=== PATIENT | female | born 1955 ===

== ENCOUNTER 2018-11-07 08:10 | Outpatient (CLI) | payer OTHER | END 2018-11-07 08:18 | disposition home or self-care (01) | LOC: SONOGRAMA 08:10 | DX: C73 Malignant neoplasm of thyroid gland (principal) ==

== ENCOUNTER 2021-04-07 08:01 | Outpatient (CLI) | payer OTHER | END 2021-04-07 08:06 | disposition home or self-care (01) | LOC: SONOGRAMA 08:01 | PROVIDERS: ATTEND Pathology Anatomic Pathology & Clinical Pathology | DX: D34 Benign neoplasm of thyroid gland (principal); E04.8 Other specified nontoxic goiter ==

== ENCOUNTER 2021-11-28 10:19 | Outpatient (CLI) | payer OTHER | END 2021-11-28 10:25 | disposition home or self-care (01) | LOC: SONOGRAMA 10:19 | PROVIDERS: ATTEND Internal Medicine | DX: E04.2 Nontoxic multinodular goiter (principal) ==

== ENCOUNTER 2022-12-24 07:26 | Outpatient (CLI) | payer OTHER | END 2022-12-24 07:29 | disposition home or self-care (01) | LOC: SONOGRAMA 07:26 | PROVIDERS: ATTEND Internal Medicine | DX: E04.2 Nontoxic multinodular goiter (principal) ==

== ENCOUNTER 2023-10-20 10:36 | Outpatient (CLI) | payer OTHER | END 2023-10-20 10:41 | disposition home or self-care (01) | LOC: SONOGRAMA 10:36 | PROVIDERS: ATTEND Internal Medicine | DX: E04.2 Nontoxic multinodular goiter (principal) ==